=== PATIENT | female | born 1955 | race Caucasian/White ===

== ENCOUNTER → 2022-05-27 09:18 | Outpatient (BNVA) | payer MEDICARE, OTHER, SELFPAY | PROVIDERS: PCP Family Medicine; Referring Provider Family Medicine; Visit Provider Student in an Organized Health Care Education/Training Program | DX: M70.61 Trochanteric bursitis, right hip (principal); M76.31 Iliotibial band syndrome, right leg; M76.01 Gluteal tendinitis, right hip | CPT/HCPCS: 99204 ==

== ENCOUNTER 2022-06-12 09:35 | Day surgery (SDC) | payer MEDICARE, OTHER, SELFPAY ==
[2022-06-12] VITALS (9 sets, daily range): BP systolic 99–111; BP diastolic 37–80; PULSE 70–79; RESP 13–18; TEMP 36.2–36.8; O2SAT 98–100; BMI 18.7
--- NOTE | 2022-06-12 09:05 | W.ANESPRE ---
General Info Date of Service Date Performed: 06/12/22 Height: 5 ft 1 in Weight: 45 kg Body Mass Index (BMI): 18.7 Surgical Procedure: Operation Date: 06/12/22 12:35 Proposed Procedure Side Surgeon p Endoscopic Iliotibial Band Release w/Trochanteric Bursectomy and Possible Gluteal Tendon Repair Right Chandan Rojas MD Meds Allergies and Home Medications Allergies Allergy/AdvReac Type Severity Reaction Status Date / Time ceftriaxone Allergy Severe lips Verified 06/12/22 10:20 swelling, rash glycopyrrolate Allergy Severe respiratory Verified 06/12/22 10:20 distress, palpitations prednisone Allergy Severe SEIZURES Unverified 06/12/22 10:20 oxycodone Allergy Intermediate Itching Verified 06/12/22 10:20 Sulfa (Sulfonamide Allergy Intermediate rash, lip Verified 06/12/22 10:20 Antibiotics) swelling tramadol Allergy Intermediate Itching Verified 06/12/22 10:20 morphine Allergy Mild Itching Verified 06/12/22 10:20 amoxicillin Allergy Unknown Verified 06/12/22 10:20 hydromorphone AdvReac Intermediate Headache Verified 06/12/22 10:20 meperidine AdvReac Intermediate headaches Verified 06/12/22 10:20 pregabalin AdvReac Mild fatigue Verified 06/12/22 10:20 and depression Home Medication Medication Instructions Recorded amoxicillin 500 mg-potassium 1 tab PO TID 05/07/22 clavulanate 125 mg tablet baclofen 10 mg tablet 10 mg PO DAILY 05/07/22 cholecalciferol (vitamin D3) 125 125 mcg PO DAILY 05/07/22 mcg (5,000 unit) capsule duloxetine 60 mg capsule,delayed 60 mg PO DAILY 05/07/22 release estradiol 0.05 mg/24 hr semiweekly 1 patch transdermal ONCE 05/07/22 transdermal patch gabapentin 400 mg capsule 400 mg PO QHS 05/07/22 lactobacillus comb no.10 20 20,000 mmu cells PO DAILY 05/07/22 billion cell capsule minocycline 100 mg capsule 100 mg PO BID 05/07/22 nystatin 500,000 unit tablet 500,000 unit PO BID 05/07/22 ropinirole 0.25 mg tablet 0.25 mg PO QHS 05/07/22 tramadol 50 mg tablet 50 mg PO TID PRN 05/07/22 vitamin K2 40 mcg tablet 40 mcg PO DAILY 05/07/22 levothyroxine 25 mcg tablet 25 mcg PO DAILY 06/11/22 aspirin 81 mg tablet,delayed 81 mg PO DAILY Prevent blood clot 06/12/22 release 14 days #14 tabs atovaquone 250 mg-proguanil 100 mg tab 06/12/22 tablet naproxen 250 mg tablet 250 - 500 mg PO BID PRN #20 tabs 06/12/22 oxycodone 5 mg tablet 5 - 10 mg PO Q4H PRN moderate to 06/12/22 severe pain #7 tabs Current Visit Medications: Current Medications Generic Name Dose Route Start Last Admin Trade Name Freq PRN Reason Stop Dose Admin Ringer's Solution 1,000 mls @ 30 mls/hr 06/12/22 06:00 IV 07/11/22 23:59 [facility] IV Miscellaneous Supplies 1 each 06/12/22 06:00 Iv Access IV 07/11/22 23:59 DIRECTED SALONI Oxycodone HCl 0 mg 06/12/22 07:30 Oxycodone 5 Mg Tab PO Q3H PRN PRN Pain Sodium Chloride 0 ml 06/12/22 06:00 Normal Saline Flush 10 Ml Syr IV 07/11/22 23:59 PRN PRN Sodium Chloride 0 ml 06/12/22 06:00 Normal Saline 10 Ml Vial IJ 07/11/22 23:59 DIRECTED PRN Sterile Water 0 ml 06/12/22 06:00 Water,Injection,Sterile 10 Ml Vial IJ 07/11/22 23:59 DIRECTED PRN PFSH Active Problems Active Problems: Problem Status Onset Code Right thigh pain M79.651 Lumbosacral radiculopathy M54.17 Lateral pain of right hip M25.551 Chronic pain G89.29 Night sweats R61 Hematuria R31.9 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 MTHFR gene mutation Z15.89 Major depressive disorder, recurrent, moderate F33.1 Hyperlipidemia E78.5 Hypothyroidism E03.9 Restless leg syndrome G25.81 Gastroesophageal reflux disease K21.9 Age-related osteoporosis without current pathological fracture M81.0 Vitamin D deficiency E55.9 Iron deficiency anemia D50.9 Degenerative arthritis M19.90 Inflammation of right sacroiliac joint M46.1 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 Right foot drop M21.371 Trigger finger of right hand M65.30 Primary osteoarthritis of right knee M17.11 Carpal tunnel syndrome G56.00 Ganglion cyst of finger of left hand M67.442 Tinnitus, bilateral H93.13 Sensorineural hearing loss, bilateral H90.3 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 after cortisone Greater trochanteric bursitis of right hip 07/09/2020 US injection H/O electromyography 10/2019s Hemorrhoids 02/28/13 Hypotension Lightheadedness Lyme disease follow with Dr. Sharon Tanner in [place] Nasal turbinate hypertrophy Palpitations zio 07/25/20 to 08/01/20 PVC mgm by CARDIOLOGY Sinusitis, bacterial TMJ arthropathy Surgical History Surgical History H/O arthroscopic knee surgery both knees H/O breast biopsy H/O colonoscopy H/O laminectomy 08/28/2018 H/O rectocele repair 2016 H/O spinal fusion 2008 L5/S1 dt RLE radiculpathy w/subsequent RFA and fusion revision 2018 [place] complicated by CSF lead and r foot drop H/O total hysterectomy with bilateral salpingo-oophorectomy (BSO) H/O umbilical hernia repair 1984 S/P appendectomy 1984 S/P cholecystectomy 1989 S/P fusion of sacroiliac joint S/P tonsillectomy and adenoidectomy Tobacco Smoking/Tobacco Use Status: Former Tobacco Use Alcohol Alcohol Intake: never Substance Use Substance use: Never Substance use type: does not use Vital Signs and Lab Results Vital Signs Most Recent Vital Signs in EMR: Temp Pulse Resp BP Pulse Ox 36.4 C L 77 16 101/54 L 100 06/12/22 10:24 06/12/22 10:24 06/12/22 10:24 06/12/22 10:24 06/12/22 10:24 Lab Results Blood Type / Crossmatch: No Data to Display Complete Blood Count: No Data to Display Complete Metabolic Panel: No Data to Display Liver Function Panel: No Data to Display Coagulation Panel: No Data to Display Cardiac Panel: No Data to Display Arterial Blood Gas: No Data to Display Venous Blood Gas: No Data to Display Pancreas Panel: No Data to Display Thyroid Panel: No Data to Display Infectious Disease: No Data to Display Blood Cultures: No Data to Display Toxicology Panel: No Data to Display Anesthesia Assessment and Plan Anesthesia History Personal History: No History of Anesthesia Complications Family History: No Family History of Anesthesia Complications Exercise Tolerance Exercise Tolerance: Metabolic Equivalents>4 Cardiac & Pulmonary Exam Cardiac Exam: Normal S1/S2 Heart Sounds Pulmonary Exam: Clear Bilateral Breath Sounds Implantable Cardiac Device Does patient have a Pacemaker or an ICD?: No Airway Exam Known Difficult Airway: No Mallampati Class: 3 Mouth Opening: Narrow (< 3cm) Thyromental Distance: Greater than 3 cm Neck Range of Motion: Full ROM Neck Circumference: Normal Teeth Condition: Normal Dentition ASA Classification ASA Score: ASA 2 Emergency Case?: No NPO Status NPO Status: NPO Clears >2 hours, Solids >8 hours Anesthesia Plan Resuscitation Status: Full Code Anesthesia Technique: General Anesthesia Airway Planned: Endotracheal Tube Monitors Used: Standard Monitors Preoperative Comments:: 67 yo female for hip scope. sig pmhx: RLS, chronic pain, hypothyroid (on replacment), palpations (? from glyco prior to her TMJ surgury - HR went to 150 and felt like someone was sitting on my chest), PVC on zio), MTHFR, seizures (? from prednisone), brain lesions (MS vs lyme, but states that they believe it is lyme), chronic back pain with fusion
[2022-06-12] MEDS: Lactated Ringers 1,000 ML 30 ML IV (10:50)
--- NOTE | 2022-06-12 13:15 | DI.RAD_ITS ---
Exam(s) XR HIP RT IN OR EXAM: XR HIP RT IN OR CLINICAL HISTORY: right hip bursitis. TECHNIQUE: 2D digital imaging was performed. COMPARISON: No exams were available for comparison FINDINGS: Fluoroscopy was provided intraoperatively for right hip procedure. See procedure report for details. Cumulative dose= 0.380 mGy IMPRESSION: DATA REPOSITORY: RADIATION DOSE DELIVERED:
[2022-06-12] MEDS: ceFAZolin 2 GM/50 ML BAG IVPB (14:09)
[2022-06-12] MEDS: EPINEPHrine 30 MG/30 ML VIAL (14:29)
--- NOTE | 2022-06-12 14:52 | W.PM.DSUDISC ---
Date of service: 06/12/22 Time of Service: 14:52 Discharge Plan Disposition Patient Disposition: HOME Condition: Good Discharge Details Reason For Visit: Right hip surgery Attending Provider: Chandan Rojas Primary Care Provider: Deanna Lopez Home Meds and New Rx's Prescriptions: New naproxen 250 mg tablet 250 - 500 mg PO BID PRNQty: 20 0RF Rx Instructions: take with a meal aspirin 81 mg tablet,delayed release (DR/EC) 81 mg PO DAILY 14 Days Qty: 14 0RF oxycodone 5 mg tablet 5 - 10 mg PO Q4H MDD 30 mg PRN (Reason: moderate to severe pain) Qty: 7 0RF Continued cholecalciferol (vitamin D3) 125 mcg (5,000 unit) capsule 125 mcg PO DAILY vitamin K2 40 mcg tablet 40 mcg PO DAILY ropinirole 0.25 mg tablet 0.25 mg PO QHS Rx Instructions: administer 1-3 hours before bedtime gabapentin 400 mg capsule 400 mg PO QHS lactobacillus comb no.10 20 billion cell capsule 20,000 mmu cells PO DAILY Rx Instructions: administer with a meal duloxetine 60 mg capsule,delayed release(DR/EC) 60 mg PO DAILY baclofen 10 mg tablet 10 mg PO DAILY tramadol 50 mg tablet 50 mg PO TID PRN estradiol 0.05 mg/24 hr patch semiweekly 1 patch transdermal ONCE amoxicillin-pot clavulanate 500-125 mg tablet 1 tab PO TID minocycline 100 mg capsule 100 mg PO BID nystatin 500,000 unit tablet 500,000 unit PO BID levothyroxine 25 mcg Tablet 25 mcg PO DAILY atovaquone-proguanil 250-100 mg tablet Label Comments: TAKE 1 TABLET BY MOUTH TWICE DAILY. DO NOT FILL THIS TILL Discharge Instructions Additional Instructions: Surgery: Right hip endoscopy with iliotibial band release and trochanteric bursectomy Activity: Weightbearing as tolerated. May use crutches or walker as needed for a few days. Gradually advance to full range of motion and activity over the next few weeks. A physical therapy prescription will be provided separately in the office at follow up if needed. Prescriptions: Aspirin 81 mg take 1 daily to prevent a blood clot for 2 weeks Naproxen 250 mg take 1-2 every 12 hours with a meal as needed for moderate pain Oxycodone 5 mg take 1-2 every 4-6 hours as needed for severe pain that is not relieved by Tramadol You may use [id number] Tylenol (acetaminophen) as needed for mild pain. These pain medications may be taken all at once or in different combinations as needed. Also, recommend Colace (docusate) as a stool softener as surgery and pain medicine cause constipation. You may try [id number] diphenhydramine (Benadryl) 25-50 mg nightly as a sleep aid Dressings: It is normal for pink water to leak out of the surgical site and be absorbed in the bandages. Leave dressing in place for 2-3 days. May then remove and leave open to air or cover incisions with Band-Aids. May shower after 5 days. Follow-up: 10-[address] Rojas You may take off the leg compression stockings this evening at home. You may also leave them on a few days longer if you have a history of leg swelling or edema. Let us know right away if you develop any redness, drainage, fevers, chest pain, or trouble breathing. Do not drink alcohol or drive for at least 24 hours after anesthesia. Please call the office during business hours with any questions or concerns. Discharge Orders Discharge Orders: Discharge Order (Routine); Ordered 06/12/22 Ordered By: Chandan Rojas DS: Diagnosis Discharge Diagnosis (1) Trochanteric bursitis of right hip: Status: Acute (2) Gluteal tendinitis, right hip: Status: Acute
--- NOTE | 2022-06-12 14:54 | W.PM.OP ---
Date of service: 06/12/22 Time of Service: 14:54 Operative Note Operative Note DATE OF PROCEDURE: 06/12/22 PRE-OP DIAGNOSIS: Right hip 1. Iliotibial band syndrome 2. Trochanteric bursitis 3. Gluteal calcific tendonitis POST-OP DIAGNOSIS: same PROCEDURE: Right hip endoscopic 1. Iiliotibial band release, CPT# 16931 2. Trochanteric bursectomy, CPT# 23105 SURGEON: Chandan Rojas ANESTHESIA TYPE: Local By Surgeon and General LMA/ETT Refer to Anesthesia Record ESTIMATED BLOOD LOSS: 5 COMPLICATIONS: None Patient was transported to: PACU Patient's condition: stable Indications: Please see complete medical record for details. Findings: Thickened iliotibial band. Inflamed trochanteric bursitis. No significant calcium deposit or gluteal tendon tear. Procedure Description: In the operating room, general anesthesia was induced. The patient was positioned supine on the [place] operating room table. All bony prominences were well-padded. Preoperative antibiotics were administered. The hip was prepped and draped in the usual sterile fashion. The correct patient, procedure, and side of the procedure were all verified prior to incision. 30 cc of 0.25% bupivacaine containing epinephrine was infiltrated about the subcutaneous tissues for the planned anterior lateral and distal anterolateral portals as well as deeply over the greater trochanter. A knife was used to incise the skin for the anterior lateral and distal anterolateral portals followed by blunt dissection subcutaneously. Under fluoroscopic guidance, a switching stick and arthroscope were inserted localizing the iliotibial band over the greater trochanter. Blunt dissection and the mechanical shaver were used to resect fat and overlying tissue about the center of the iliotibial band and carefully expose the anterior and posterior margins. Once there was adequate exposure of the IT band, the greater trochanter was again localized under fluoroscopic guidance with a spinal needle inserted through the skin down to bone. This central area was marked using the radiofrequency ablator. A Gifford blade was brought in and used to create a 2 cm longitudinal incision in line with the IT band fibers as well as extending it in a cruciate fashion with 2 cm incisions anteriorly and posteriorly. The radiofrequency ablator was used to achieve hemostasis. The mechanical shaver was then used to debride the IT band released edges exposing the trochanteric bursa. The mechanical shaver was then used to excise the trochanteric bursa taking care to protect musculature about the margins of the greater trochanter as well as neurovascular structures especially posteriorly. There was excellent visualization of the vastus lateralis as well as gluteus medius confirming appropriate bursa excision. The hip was brought through range of motion including internal and external rotation and there was no impinging iliotibial band tissue or remaining pathologic bursa. The viewing and working portals were switched and appropriate IT band release, trochanteric bursa excision, and hemostasis confirmed. Suction was used to remove fluid from the endoscopic space. The portals were closed using 3-0 Monocryl in a buried fashion. Steri-Strips were applied over the incisions followed by Xeroform, 4 x 4 gauze, an ABD pad, and secured with tape. The patient awoke from anesthesia without complication and was transferred to the recovery room in a stable condition.
[2022-06-12] MEDS: fentaNYL 100 MCG/2 ML VIAL IVP ×2 (15:06→15:18)
--- NOTE | 2022-06-12 15:28 | W.ANESPOSTOP ---
Postoperative Evaluation Date, Time and Location Date Performed: 06/12/22 Time Performed: 15:28 Patient Location: PACU Vital Signs Most Recent Imported Vital Signs: Most Recent Vital Signs Temp Pulse Resp BP Pulse Ox 36.8 C 79 14 108/49 L 99 06/12/22 15:10 06/12/22 15:20 06/12/22 15:20 06/12/22 15:20 06/12/22 15:20 Pain Score Most Recent Pain Score: Most Recent Pain Score Pain Level 8 06/12/22 15:20 Assessment Mental Status: Awake (Alert & Oriented to Patient Baseline) Airway and Respiratory Function: Patent airway with normal (patient baseline) respiratory exam Cardiovascular Function: Hemodynamically Stable Hydration Status: Adequately Hydrated Nausea & Vomiting: No Nausea or Vomiting Pain: Pain is Moderate or Severe Postoperative Pain Management: Pain being addressed with medication Peripheral Nerve Block: Patient did not receive a nerve block
== END 2022-06-12 16:40 | disposition home or self-care (01) ==
PROVIDERS: PCP Family Medicine; Visit Provider Student in an Organized Health Care Education/Training Program
PROC: (CPT 29863; principal; 2022-06-12 12:15)
DX: M70.61 Trochanteric bursitis, right hip (principal); M76.01 Gluteal tendinitis, right hip; M76.31 Iliotibial band syndrome, right leg
CPT/HCPCS: 27062; 27305; 73501; J0690; J1100; J1885; J2405; J2704; J3010

== ENCOUNTER → 2022-06-24 10:33 | Outpatient (BNVA) | payer MEDICARE, OTHER, SELFPAY | PROVIDERS: PCP Family Medicine; Referring Provider Family Medicine; Visit Provider Student in an Organized Health Care Education/Training Program | DX: Z47.89 Encounter for other orthopedic aftercare (principal); M70.61 Trochanteric bursitis, right hip; M76.31 Iliotibial band syndrome, right leg; M76.01 Gluteal tendinitis, right hip ==

== ENCOUNTER → 2022-08-11 10:49 | Outpatient (BNVA) | payer MEDICARE, OTHER, SELFPAY | PROVIDERS: PCP Family Medicine; Referring Provider Family Medicine; Visit Provider Student in an Organized Health Care Education/Training Program | DX: Z47.89 Encounter for other orthopedic aftercare (principal); M70.61 Trochanteric bursitis, right hip; M76.31 Iliotibial band syndrome, right leg; M76.01 Gluteal tendinitis, right hip ==